=== PATIENT | male | born 1950 | race Hispanic/Latino ===

== ENCOUNTER 2020-09-28 17:33 | Observation (INO) | payer MEDICARE ==
[~2020-09-28] VITALS: Ht 170.2 cm; Wt 58.3 kg
[~2020-09-28 17:33] MED LIST: AMLO-258 PO; METOPROLOL ER PO; MULT-248 PO; POTA10TA11 PO
[2020-09-28] MEDS ORDERED: ONDANSETRON HCL 4 MG/2 ML VIAL ONE (18:02)
[2020-09-28] MEDS ORDERED: CEFAZOLIN SODIUM 1 GM VIAL ONE (18:03)
[2020-09-28] MEDS ORDERED: MORPHINE SULFATE 4 MG/1ML SYG ONE (18:03)
[2020-09-28 18:27] LABS: BASOPHILS % (AUTO) 0.2 % (0.0-5.0); EOSINOPHILS % (AUTO) 0.1 % (0.0-8.0); HEMATOCRIT 40.8 % (42-54); LYMPHOCYTES % (AUTO) 11.6 % (21.0-51.0); MEAN CORPUSCULAR HGB CONC 34.1 g/dL (32.0-36.0); MEAN CORPUSCULAR VOLUME 96.9 fL (79-99); MONOCYTES % (AUTO) 8.8 % (3.0-13.0); NEUTROPHILS % (AUTO) 78.7 % (40.0-77.0); PLATELET COUNT (AUTO) 232 K/uL (130-400); RED BLOOD CELL COUNT(AUTO) 4.21 MIL/uL (4.50-6.20); RED CELL DISTRIBUTION WIDTH 13.1 % (11.0-15.5); WHITE BLOOD COUNT (AUTO) 12.3 K/uL (4.8-10.8)
[2020-09-28 18:44] LABS: CREATININE 0.9 mg/dL (0.5-1.5); POTASSIUM 4.8 mmol/L (3.5-5.1)
[2020-09-28 18:47] LABS: INR 0.97 (0.85-1.15); PARTIAL THROMBOPLASTIN TIME 25.5 SEC (26.3-35.5); PROTHROMBIN TIME 10.1 SEC (9.6-11.6)
[2020-09-28 18:53] LABS: BILIRUBIN,TOTAL 0.6 mg/dL (0.2-1.0); TOTAL PROTEIN, SERUM 8.6 g/dL (6.0-8.3)
[2020-09-28] MEDS ORDERED: LACTULOSE 20 GM/30 ML UDCUP PO PRN (20:15)
[2020-09-28] MEDS ORDERED: ACETAMINOPHEN 325 MG TAB PO PRN ×2 (20:15)
[2020-09-28] MEDS ORDERED: ONDANSETRON HCL 4 MG/2 ML VIAL IV PRN (20:15)
[2020-09-28] MEDS ORDERED: GUAIFENESIN-DM 200/20 MG 10 ML PO PRN (20:15)
[2020-09-28] MEDS ORDERED: NITROGLYCERIN 0.4 MG SL TAB SL PRN (20:15)
[2020-09-28] MEDS ORDERED: HYDROMORPHONE HCL 0.5 MG/0.5 ML ML IV PRN (20:30)
[2020-09-28] MEDS ORDERED: METOPROLOL TARTRATE 1 MG/ML 5ML VIAL IV PRN (20:30)
[2020-09-28 23:50] VITALS: BP 115/63
[2020-09-29] VITALS (24 sets, daily range): BP systolic 109–146; BP diastolic 45–72
[2020-09-29] MEDS: FAMOTIDINE 20MG TAB 20 MG TAB PO SCH (09:00)
[2020-09-29] MEDS: AMLODIPINE-BENAZEPRIL 5-10 MG PO SCH (09:00)
[2020-09-29] MEDS: LACTATED RINGERS 1000ML 1,000 ML IV SCH ×3 (09:10→16:15)
[2020-09-29] MEDS ORDERED: ONDANSETRON HCL 4 MG/2 ML VIAL ONE (11:45)
[2020-09-29] MEDS ORDERED: DEXAMETHASONE SOD PHOSPHATE 10MG/ML 1ML VIAL ONE (11:45)
[2020-09-29] MEDS ORDERED: LIDOCAINE PF 2% 5ML ABBOJECT ONE (11:45)
[2020-09-29] MEDS ORDERED: SUCCINYLCHOLINE CHLORIDE 20 MG/ML 10 ML VIAL ONE (11:45)
[2020-09-29] MEDS ORDERED: PROPOFOL 10 MG/ML 20ML VIAL IV ONE (11:46)
[2020-09-29] MEDS ORDERED: FENTANYL CITRATE PF 50 MCG/1 ML 2ML VIAL ONE (11:46)
[2020-09-29] MEDS ORDERED: GLYCOPYRROLATE 1 MG/5 ML SYRINGE ONE (11:46)
[2020-09-29] MEDS ORDERED: ROCURONIUM 10MG/1ML SYR 10 MG/ML ML ONE (11:47)
[2020-09-29] MEDS ORDERED: MIDAZOLAM HCL 1 MG/ML 2ML VIAL ONE (11:47)
[2020-09-29] MEDS ORDERED: NEOSTIGMINE 5MG/5ML SYR IV ONE (11:47)
[2020-09-29] MEDS ORDERED: CEFAZOLIN SODIUM 1 GM VIAL IVP ONE ×2 (12:48)
[2020-09-29] MEDS ORDERED: CEPH500B PO (16:06)
[2020-09-29] MEDS: ENOXAPARIN SODIUM 30 MG/0.3 ML SQ SCH (20:59)
[2020-09-30] VITALS: BP 147/68
[2020-09-30] MEDS: LACTATED RINGERS 1000ML 1,000 ML IV SCH (02:15)
[2020-09-30 04:00] VITALS: BP 157/62
[2020-09-30 08:12] VITALS: BP 146/59
[2020-09-30] MEDS ORDERED: NON-FORMULARY MEDICATION 1 EACH (Amlodipine Besylate 10 MG) PO SCH (09:00)
[2020-09-30] MEDS ORDERED: AMLODIPINE BESYLATE 5 MG TAB PO SCH (09:00)
[2020-09-30] MEDS: FAMOTIDINE 20MG TAB 20 MG TAB PO SCH (09:49)
[2020-09-30] MEDS: AMLODIPINE-BENAZEPRIL 5-10 MG PO SCH (09:49)
[2020-09-30] MEDS: ENOXAPARIN SODIUM 30 MG/0.3 ML SQ SCH (09:50)
== END 2020-09-30 11:55 | disposition home or self-care (01) ==
LOC: EDH 17:33 → EDHIP 19:59 → 3BH 23:24
PROVIDERS: ADMIT Internal Medicine; ATTEND Internal Medicine
DX: S52.301A Unspecified fracture of shaft of right radius, initial encounter for closed fracture (principal); S52.201A Unspecified fracture of shaft of right ulna, initial encounter for closed fracture; Z20.822 Contact with and (suspected) exposure to COVID-19; I10 Essential (primary) hypertension; J44.9 Chronic obstructive pulmonary disease, unspecified; M19.90 Unspecified osteoarthritis, unspecified site; F17.200 Nicotine dependence, unspecified, uncomplicated; W18.39XA Other fall on same level, initial encounter; Y93.01 Activity, walking, marching and hiking; Y92.89 Other specified places as the place of occurrence of the external cause
CPT/HCPCS: 25575; 29105; 36415; 71045; 73090; 73110 ×2; 80053; 82550; 84484; 85025; 85610; 85730; 87070; 87076; 87426; 93005; 96360; 96361 ×2; 96372 ×2; 99285; A4216; A4222; A4223; A4649; A4930; A6223; C1713 ×7; C1776; G0378 ×38; J0330; J0690 ×3; J1100; J1650 ×2; J2001; J2250; J2270; J2405 ×2; J2704; J2710; J3010; J3490; J7030; J7120 ×2; Q4050; U0003

== ENCOUNTER 2022-11-29 20:55 | Emergency (ER) | payer MEDICARE ==
[~2022-11-29 20:55] MED LIST changes: +CEPH500B PO; -METOPROLOL ER PO; -MULT-248 PO; -POTA10TA11 PO
== END 2022-11-29 21:50 | disposition left against medical advice (07) ==
LOC: EDH 20:55
DX: Z53.21 Procedure and treatment not carried out due to patient leaving prior to being seen by health care provider (principal)